=== PATIENT | female | born 2000 | race Caucasian/White ===

== ENCOUNTER 2022-05-21 18:20 | Emergency (ER) | payer BC, SELFPAY ==
[2022-05-21 18:26] VITALS: BP 103/62; PULSE 73; RESP 16; TEMP 37.9; O2SAT 99
--- NOTE | 2022-05-21 18:39 | ED.EAR ---
HPI - Ear Problem General Chief complaint: Ear Stated complaint: red dots in throat Time Seen by Provider: 05/21/22 18:44 Source: patient and RN notes reviewed Mode of arrival: ambulatory Limitations: no limitations History of Present Illness HPI Narrative: 21-year-old female presents with concern for sore throat, headache, mild nasal congestion in the morning. She reports low-grade temperature. Reports her boyfriend has similar symptoms. Reports she took a negative COVID test today. She denies cough, shortness of breath, body aches, chills, sweats Complaint: other (Sore throat) Related Data Home Medications Medication Instructions Recorded Confirmed No Home Medications 05/21/22 05/21/22 Allergies Allergy/AdvReac Type Severity Reaction Status Date / Time Penicillins Allergy Unknown HIVES Verified 05/21/22 18:27 Review of Systems Review of Systems: CONSTITUTIONAL: Denies malaise, chills, sweats. Reports low-grade fever. EYES: Denies visual changes, redness, or discharge. ENT: Reports rhinorrhea, congestion, and sore throat. Denies sinus pain or ear pain CARDIOVASCULAR: Denies chest pain, palpitations, or edema. RESPIRATORY: Denies cough. Denies dyspnea. GASTROINTESTINAL: Denies abdominal pain, nausea, vomiting, diarrhea SKIN: Denies rash or itching. MUSCULOSKELETAL: Denies myalgia. NEUROLOGIC: Reports headache. All systems reviewed & are unremarkable except as noted in HPI and below PMFSH Comments At time of signature, agree with nursing past medical, surgical, social and family history. There is no relevant family history pertinent to the presenting complaint Exam Narrative: GENERAL: Well-appearing, well-nourished, and in no acute distress. HEAD: Normocephalic EYES: PERRLA, conjunctivae clear ENT: Nares clear, clear discharge. Mucous membranes moist. TM pearly pollard with sharp light reflex bilaterally; no tragal tenderness. Oropharynx not erythematous with patch of flat erythematous macules on the r hard palate. Tonsils not enlarged and without exudate, no drooling, no hoarseness, no trismus, uvula midline. NECK: Supple. No lymphadenopathy CHEST: Clear to auscultation, breath sounds equal. No wheezing, rhonchi, rales, or stridor. No respiratory distress, speaks in full sentences. HEART: Regular rate and rhythm. No murmur heard. SKIN: Warm, dry, no rash. NEURO: Alert and oriented x3. PSYCH: Normal mood and affect Course Course Emergency Course: Patient is aware of diagnosis, understands and agrees to treatment plan. Anticipatory guidance given. Patient agrees to follow-up as directed and is aware of reasons to seek care at the emergency department. Portions of this record may have been created with voice recognition software Level of Care: Express Care Visit Vital Signs Vital signs: Vital Signs Temperature 100.3 F H 05/21/22 18:26 Pulse Rate 73 05/21/22 18:26 Respiratory Rate 16 05/21/22 18:26 Blood Pressure 103/62 05/21/22 18:26 Pulse Oximetry 99 05/21/22 18:26 Oxygen Delivery Room Air 05/21/22 18:26 Temperature 100.3 F H 05/21/22 18:26 Pulse Rate 73 05/21/22 18:26 Respiratory Rate 16 05/21/22 18:26 Blood Pressure 103/62 05/21/22 18:26 Pulse Oximetry 99 05/21/22 18:26 Oxygen Delivery Room Air 05/21/22 18:26 Reviewed. Medical Decision Making MDM Narrative Medical decision making narrative: Differential diagnosis considered: Verduzco virus, strep pharyngitis, allergic rhinitis, upper respiratory tract infection, sinusitis, rhinosinusitis, nasopharyngitis. viral pharyngitis, otitis media, otitis externa, otitis effusion, cerumen impaction, foreign body. Exam findings show no acute concerns or changes; patient is non-toxic appearing and is in no distress. Patient is appropriate for outpatient treatment and follow-up. Vital Signs Vital Signs: Vital Signs Temperature 100.3 F H 05/21/22 18:26 Pulse Rate 73 05/21/22 18:26 Respiratory Rate 16 07/3
== END 2022-05-21 18:50 | disposition home or self-care (01) ==
PROVIDERS: Emergency Provider Nurse Practitioner
DX: J06.9 Acute upper respiratory infection, unspecified (principal)
CPT/HCPCS: 87081; 87880; 99213; G0463

== ENCOUNTER 2023-01-31 08:17 | Emergency (ER) | payer OTHER, SELFPAY ==
[2023-01-31 08:25] VITALS: BP 115/70; PULSE 90; RESP 16; TEMP 37.1; O2SAT 100
--- NOTE | 2023-01-31 08:28 | ED.URI ---
HPI - URI/Sore Throat General Chief Complaint: Upper Respiratory Infection Stated Complaint: SORE THROAT Time Seen by Provider: 01/31/23 08:28 Source: patient and RN notes reviewed History of Present Illness HPI Narrative: Patient is a 22-year-old female presents to urgent care with complaints of a sore throat for 2 days. Patient also reports of some bilateral ear discomfort. Patient has not taken anything [id number] for her symptoms. Denies any fever, nausea, vomiting or ill exposures. No other acute complaints. No acute distress noted. Patient aware of the plan of care. Some parts of this dictation were generated by voice recognition software and may contain typographical and/or grammatical inaccuracies. Related Data Allergies Allergy/AdvReac Type Severity Reaction Status Date / Time Penicillins Allergy Unknown HIVES Verified 01/31/23 08:25 Review of Systems Review of Systems: CONSTITUTIONAL: Denies fever, chills, or sweats. EYES: Denies visual changes, redness, or discharge. ENT: Reports of sore throat and otalgia CARDIOVASCULAR: Denies chest pain, palpitations, or edema. RESPIRATORY: Denies cough or dyspnea. GASTROINTESTINAL: Denies abdominal pain, nausea, vomiting, or diarrhea. GENITOURINARY: Denies dysuria or hematuria. SKIN: Denies rash or itching. MUSCULOSKELETAL: Denies back pain, joint pain, or myalgia. NEUROLOGIC: Denies headache, numbness, or weakness. All other systems reviewed are negative, except as documented in HPI. PMFSH Social History Social History Smoking status: Never smoker Alcohol intake: current Substance use: never Substance use type: does not use Living arrangements: with family Spiritual care concerns: No Comments At the time of my signature, I reviewed and agree with the nursing past medical, surgical, social, and family history. There is no relevant family history pertinent to the patient complaint. Exam Narrative: GENERAL: This is a well-nourished, well-developed patient, in no apparent distress. HEAD: normocephalic, atraumatic. EYES: PERRL. Sclera clear/white. Vision is grossly intact. EARS: External ears normal NOSE: External nose normal with no obvious nasal discharge, nares without redness, no rhinorrhea. THROAT: Mucous membranes moist, [id number] edema/erythema to bilateral tonsils with petechiae to posterior oropharynx and moderate postnasal drainage NECK: Neck supple, non-tender without lymphadenopathy RESPIRATORY: Clear to auscultation. Breath sounds equal bilaterally. No wheezes, rales, or rhonchi. SKIN: warm, intact with no suspicious lesions or rash, good texture and turgor. NEURO: awake, alert, and oriented to person, place and time. There were no obvious focal neurologic abnormalities. EXTREMITIES: No clubbing, cyanosis, or edema. Course Course Level of Care: Express Care Visit Vital Signs Vital signs: Vital Signs Temperature 98.7 F 01/31/23 08:25 Pulse Rate 90 01/31/23 08:25 Respiratory Rate 16 01/31/23 08:25 Blood Pressure 115/70 01/31/23 08:25 Pulse Oximetry 100 01/31/23 08:25 Temperature 98.7 F 01/31/23 08:25 Pulse Rate 90 01/31/23 08:25 Respiratory Rate 16 01/31/23 08:25 Blood Pressure 115/70 01/31/23 08:25 Pulse Oximetry 100 01/31/23 08:25 Reviewed MDM - URI/Sore Throat MDM Narrative Medical decision making narrative: Reviewed lab results with the patient. She is aware that strep swab was positive. Advised patient complete the oral antibiotic regimen as prescribed. Be sure to eat and drink with medication. Change your toothbrush within 2-3 days. Use Tylenol/ibuprofen as needed. You are considered contagious until you have been on the medication for 24 hours and remained fever free. Follow-up with your PCP within 2-5 days or for worsening symptoms or failure to improve. Differential Diagnosis Differential diagnosis: Likely upper respiratory infection, croup, otitis media, sinusitis, viral
== END 2023-01-31 08:47 | disposition home or self-care (01) ==
PROVIDERS: Emergency Provider Nurse Practitioner Family; PCP Physician Assistant
DX: J02.0 Streptococcal pharyngitis (principal)
CPT/HCPCS: 87880; 99213; G0463

== ENCOUNTER 2023-03-01 08:06 | Day surgery (SDC) | payer OTHER, SELFPAY ==
[2023-01-22 09:11] VITALS: BMI 19.5
--- NOTE | 2023-02-28 14:57 | WPDANESEPPF ---
Anes - Initial Pre Proc Eval Procedure: Operation Date: 03/01/23 10:00 Proposed Procedures p Diagnostic Colonoscopy - Bryan Virgen MD Date/Time: 02/28/23 14:57 Surgeon: Bryan Virgen MD Pre Op Diagnosis: Monoclonal Gammopathy Patient Data Age: 22 Gender: F Height: 1.52 m Weight: 45.4 kg Allergies Allergy/AdvReac Type Severity Reaction Status Date / Time Penicillins Allergy Unknown HIVES Verified 03/01/23 08:48 Home Medications Medication Instructions Recorded Confirmed Type Adults Multivitamin 1 tablet PO DAILY 02/12/23 03/01/23 History Patient hx anesthesia problems: none Family hx anesthesia problems: none Results Review: All pre-operative results and documents have been reviewed as part of the pre-operative evaluation. [facility] Social History Social History Smoking status: Never smoker Alcohol intake: current Substance use: never Substance use type: does not use Living arrangements: with family Spiritual care concerns: No Anes - Eval Final PreProcedure Day of Procedure 02/28/23 14:57 Patient weight: normal Heart: regular rate and rhythm Lungs: clear to auscultation and normal air movement Airway: Mallampati scale class II Neurological: alert and oriented Last oral intake: >/= 8 hours ASA classification: I Emergent: no Anesthetic plan: proceed Anesthesia type and monitoring: general GIVS Results Review: All pre-operative results and documents have been reviewed as part of the pre-operative evaluation. Informed Consent: The patient's anesthetic plan and its attendant risks and benefits were discussed with the patient/family/POA. Questions were solicited and answers provided to the satisfaction of the patient/family/POA.
[2023-03-01 08:50] VITALS: BP 102/65; PULSE 71; RESP 18; TEMP 36.7; O2SAT 100
[2023-03-01] MEDS: LACTATED RINGERS 1,000 ML 150 ML IV CONT (09:15)
--- NOTE | 2023-03-01 09:55 | PM.HPGS ---
History of Present Illness History of Present Illness Consent: Risks, benefits, and alternatives have been discussed and questions answered. Patient agrees to proceed with procedure. Chief complaint: Monoclonal Gammopathy Narrative: Dang Christopher is a 22 year old female with intermittent lower abdominal cramping after eating, serology for celiac negative. Review of Systems Constitutional: Constitutional: Denies headache(s) and Denies weakness Eyes: Eyes: Denies blurry vision ENT: Reports Normal hearing present, Denies headache(s) and Denies neck pain Cardiovascular: Cardiovascular: Denies chest pain and Denies dyspnea Respiratory: Respiratory: Denies dyspnea Gastrointestinal: Gastrointestinal: Reports no additional gastrointestinal complaints Genitourinary: Genitourinary: Denies dysuria Musculoskeletal: Musculoskeletal: Denies neck pain Integumentary/Breasts: Skin/Breast: Denies dry skin Neurologic: Reports Normal hearing present, Denies headache(s) and Denies weakness Psychiatric: Psychiatric: Denies anxiety Endocrine: Endocrine: Denies change in body appearance Hematologic/Lymphatic: Hematologic/Lymphatic: Denies easy bleeding Allergic/Immunologic: Allergic/Immunologic: Denies urticaria PMFSH Past Medical History Medical History (Updated 03/01/23 @ 09:58 by Bryan Virgen MD) Abdominal cramping Social History Social History Smoking status: Never smoker Alcohol intake: current Substance use: never Substance use type: does not use Living arrangements: with family Spiritual care concerns: No Meds Home Medications and Allergies Home Medications Medication Instructions Recorded Confirmed Type Adults Multivitamin 1 tablet PO DAILY 02/12/23 03/01/23 History Allergies Allergy/AdvReac Type Severity Reaction Status Date / Time Penicillins Allergy Unknown HIVES Verified 03/01/23 08:48 Vital Signs Vital Signs - 24 hr 03/01/23 08:50 Temperature 98.1 F Pulse Rate 71 Respiratory Rate 18 Blood Pressure 102/65 Pulse Oximetry 100 Oxygen Delivery Room Air Exam Const: General: comfortable and no acute distress HENMT: Face/Nose/Sinus: Normal nares present Eyes: General: appearance normal, both eyes and all related structures Neck: Neck: no JVD Resp: Auscultation: clear to auscultation bilaterally Cardio: Rate: regular rate Rhythm: regular rhythm GI: Inspection: non-distended GI Palp: Yes Soft to palpation Skin: General skin exam: normal color Neuro: General: gait normal Speech: normal speech Extrem: General: normal to inspection Psych: Mental Status: mental status grossly normal Assessment and Plan Assessment and plan (1) Abdominal cramping: Code(s): R10.9 - Unspecified abdominal pain Status: Acute Assessment and Plan: colonoscopy
[2023-03-01 10:19] VITALS: BP 85/52; PULSE 61; RESP 12; O2SAT 99
[2023-03-01 10:29] VITALS: BP 91/59; PULSE 52; RESP 14; O2SAT 100
[2023-03-01 10:40] VITALS: BP 100/63; PULSE 60; RESP 14; O2SAT 99
--- NOTE | 2023-03-06 08:45 | WPDANESPN ---
Anes - Prog Note Post-Op Date/Time: 03/06/23 08:45 Cardiovascular status: normal Respiratory status: normal Airway patency: baseline Mental status: baseline Post-Op hydration status: normal Vital Signs: Last Vital Signs Temp 36.7 C 03/01/23 08:50 Pulse 60 03/01/23 10:40 Resp 14 03/01/23 10:40 BP 100/63 03/01/23 10:40 Pulse Ox 99 03/01/23 10:40 O2 Del Method Room Air 03/01/23 10:40 Pain Score (VAS): 0 Post-procedural complaints: none Patient Feedback: Patient satisfied with anesthetic care.
== END 2023-03-01 10:57 | disposition home or self-care (01) ==
PROVIDERS: PCP Physician Assistant; Visit Provider Internal Medicine Gastroenterology
PROC: 0DJD8ZZ Inspection of Lower Intestinal Tract, Via Natural or Artificial Opening Endoscopic (ICD-10-PCS; CPT 45378; principal; 2023-03-01 10:00)
DX: R10.9 Unspecified abdominal pain (principal)
CPT/HCPCS: 45378

== ENCOUNTER → 2023-03-26 12:44 | Outpatient (CLI) | payer OTHER, SELFPAY ==
--- NOTE | ~2023-03-26 | CT_ITS ---
EXAMINATION: CT abdomen pelvis w con DATE: 03/26/2023 13:08 INDICATION: Left lower quadrant abdominal pain TECHNIQUE: Computed tomography (CT) of the abdomen and pelvis was performed with 100 CC Omnipaque 350 intravenous contrast. Automated exposure control and iterative reconstruction technique were employe d. Exam dose: 267.83 mGy-cm total exam DLP. COMPARISON: None. FINDINGS: 3 x 5 mm peripheral right lower lobe pulmonary nodule (series 4 image 6). Normal heart size . No pericardial or pleural effusion. The liver, gallbladder, bile ducts, spleen, pancreas, pancreatic duct, and adrenal glands and kidneys are unremarkable. Normal caliber of the abdominal aorta. No intraperitoneal or retroperitoneal or pelvic mass lesion or adenopathy or ascites. The uterus, adnexal areas and urinary bladder are unremarkable. There is a small amount of free fluid in the posterior cul-de-sac which may be physiologic. There are nondilated fluid containing small bowel segments. There is loss of fat plane between some a djacent small bowel loops in the pelvic area. Consider enteritis, endometriosis, pelvic inflammatory disease. The appendix is not clearly identified. No bowel obstruction, bowel wall thickening, pneumatosis or intraperitoneal free air is detected. Included skeletal structures are unremarkable. IMPRESSION: Nondilated fluid containing small bowel segments in the pelvis with loss of fat plane be tween some adjacent small bowel segments in the mid to left pelvis. Consider enteritis, endometriosis , pelvic inflammatory disease, appendicitis. The appendix is not clearly identified Reviewed, dictated and finalized at [facility]. Reviewed, dictated and finalized at [facility]. IMPRESSION: Nondilated fluid containing small bowel segments in the pelvis wit h loss of fat plane between some adjacent small bowel segments in the mid to le ft pelvis. Consider enteritis, endometriosis, pelvic inflammatory disease, appe ndicitis. The appendix is not clearly identified
== END ==
PROVIDERS: PCP Physician Assistant; Visit Provider Physician Assistant
DX: R10.32 Left lower quadrant pain (principal)
CPT/HCPCS: 74177; Q9967

== ENCOUNTER 2023-06-14 08:15 | Emergency (ER) | payer OTHER, SELFPAY ==
[2023-06-14 08:30] VITALS: BP 115/78; PULSE 85; RESP 16; TEMP 36.4; O2SAT 100
--- NOTE | 2023-06-14 08:48 | ED.URI ---
HPI - URI/Sore Throat General Chief Complaint: Upper Respiratory Infection Stated Complaint: Cold symptoms; Dots on roof of mouth Time Seen by Provider: 06/14/23 08:49 History of Present Illness HPI Narrative: 22 y/o female presented for c/o throat feels 'swollen' over the past few days. States she had sinus congestion, sore throat and right lymph node swelling for 2 weeks, which has improved. Endorses mild discomfort with swallowing but denies 'pain' and red spots top of mouth. States she has had similar symptoms about one year ago and was told she had a virus. Not taking anything for symptoms. Denies sick contacts. Related Data Home Medications Medication Instructions Recorded Confirmed No Home Medications 06/14/23 06/14/23 Allergies Allergy/AdvReac Type Severity Reaction Status Date / Time Penicillins Allergy Unknown HIVES Verified 06/14/23 08:31 Review of Systems Review of Systems: CONSTITUTIONAL: Denies body aches, fever, chills, or sweats. EYES: Denies visual changes, redness, or discharge. ENT: reports sore throat Denies rhinorrhea, congestion, or otalgia. CARDIOVASCULAR: Denies chest pain, palpitations, or edema. RESPIRATORY: Denies dyspnea. GASTROINTESTINAL: Denies abdominal pain, nausea, vomiting, or diarrhea. SKIN: Denies rash, itching, or wounds. MUSCULOSKELETAL: Denies back pain, joint pain, or myalgia. NEUROLOGIC: Denies headache PMFSH Past Medical History Medical History Abdominal cramping Social History Social History Smoking status: Never smoker Alcohol intake: current Substance use: never Substance use type: does not use Living arrangements: with family Spiritual care concerns: No Exam Narrative: GENERAL: well-appearing, no acute distress. EYES: conjunctivae clear ENT: Mucous membranes moist. TMs pearly pollard with normal light reflex bilaterally; no tragal tenderness. Oropharynx mildly erythematous without lesions. Few erythematous flat areas <1mm diameter to hard palate, Tonsils enlarged and without exudate. No drooling, no hoarseness, no trismus, uvula midline. No tripod positioning, hot potato voice, or soft palate swelling. NECK: Supple. No lymphadenopathy CHEST: Clear to auscultation, breath sounds equal. No respiratory distress, speaks in full sentences. HEART: Regular rate and rhythm. No murmur heard. SKIN: Warm, dry, no rash. NEURO: Alert and oriented x3. Course Course Emergency Course: Patient is aware of diagnosis, understands and agrees to treatment plan. Anticipatory guidance given. Patient agrees to follow-up as directed and is aware of reasons to seek care at the emergency department. Portions of this record may have been created with voice recognition software Level of Care: Express Care Visit Vital Signs Vital signs: Vital Signs Temperature 97.6 F 06/14/23 08:30 Pulse Rate 85 06/14/23 08:30 Respiratory Rate 16 06/14/23 08:30 Blood Pressure 115/78 06/14/23 08:30 Pulse Oximetry 100 06/14/23 08:30 Oxygen Delivery Room Air 06/14/23 08:30 Temperature 97.6 F 06/14/23 08:30 Pulse Rate 85 06/14/23 08:30 Respiratory Rate 16 06/14/23 08:30 Blood Pressure 115/78 06/14/23 08:30 Pulse Oximetry 100 06/14/23 08:30 Oxygen Delivery Room Air 06/14/23 08:30 MDM - URI/Sore Throat MDM Narrative Medical decision making narrative: NEG strep result reviewed with pt. Advise supportive treatments. Patient is appropriate for outpatient treatment and follow-up. Differential Diagnosis Differential diagnosis: Likely upper respiratory infection, viral infection and pharyngitis Lab Data Labs: Strep Screen Presumptive Negative *(Reference Range: Negative)* Discharge Plan Discharge Clinical Impression: Acute tonsillitis Pat
== END 2023-06-14 09:04 | disposition home or self-care (01) ==
PROVIDERS: Emergency Provider Nurse Practitioner Family; PCP Physician Assistant
DX: J03.90 Acute tonsillitis, unspecified (principal)
CPT/HCPCS: 87081; 87880; 99213; G0463